=== PATIENT | female | born 1980 | race Caucasian/White ===

== ENCOUNTER → 2016-10-05 | Outpatient (CLI) | payer BC ==
[2016-10-05 10:24] LABS: CH 30.5; CHCM 33.7; HCT 44.3 % (34.0-46.0); HDW 2.86; HGB 14.3 gm/dL (11.4-16.0); MCH 29.3 pg (25.0-35.0); MCHC 32.2 g/dL (31.0-37.0); MCV 91.1 fL (80.0-100.0); Mean Platelet Volume 6.6; RBC 4.87 m/uL (3.80-5.40); RDW 13.9 % (11.5-15.5); WBC 6.2 k/uL (3.8-10.6)
== END | disposition home or self-care (01) ==
LOC: LABWHC1 08:46
PROVIDERS: ATTEND Obstetrics & Gynecology
DX: Z34.92 Encounter for supervision of normal pregnancy, unspecified, second trimester (principal); Z3A.00 Weeks of gestation of pregnancy not specified
CPT/HCPCS: 36415; 82950; 85027

== ENCOUNTER → 2016-10-15 | Outpatient (CLI) | payer BC ==
[2016-10-15 13:16] LABS: Glucose 3 Hour, Gest 49 mg/dL
== END | disposition home or self-care (01) ==
LOC: LABWHC1 08:12
PROVIDERS: ATTEND Obstetrics & Gynecology
DX: O99.810 Abnormal glucose complicating pregnancy (principal); Z3A.00 Weeks of gestation of pregnancy not specified
CPT/HCPCS: 36415; 82951; 82952

== ENCOUNTER → 2016-10-25 | Outpatient (CLI) | payer BC ==
--- NOTE | 2016-10-25 14:36 | US ---
EXAMINATION TYPE: US OB anatomy transabd DATE OF EXAM: 10/25/2016 12:49 PM COMPARISON: In pacs June 18, 2016 HISTORY: Large for dates TECHNIQUE: Transabdominal (TA) EXAM MEASUREMENTS: GESTATIONAL AGE / DATING Physician Established: (28 weeks/5 days) EDC: 01/12/2017 Dates by LMP: (28 weeks/5 days) EDC: 01/12/2017 Dates by First Scan: (28 weeks/5 days) EDC: 01/12/2017 Dates by Current Scan for: (29 weeks/0 days) EDC: 01/10/2017 SURVEY IUP: Single PLACENTA: Posterior PREVIA: No previa SAUD: 13.8 cm Normal CERVICAL LENGTH (transabdominal: norm > 3.0cm): 3.4 cm BIOMETRY PRESENTATION: Vertex BPD: 7.6 cm 30 weeks / 4 days HC: 27.0 cm 29 weeks / 3 days AC: 24.4 cm 28 weeks / 5 days FL: 5.5 cm 29 weeks / 0 days ESTIMATED WEIGHT IN GRAMS: 1322 grams ESTIMATED WEIGHT IN LBS/OZS: 2 lbs. 15 oz. WEIGHT PERCENTAGE BASED ON ESTABLISHED DATE: 48 % HC/AC: 1.11 Normal FL/AC: 22.55 Normal HEART RATE: 148 bpm RHYTHM: Normal ANATOMY SEEN (within normal limits): Midline Falx Cavus Septi Pellucidi Four Chamber Heart Outflow tracts: LVOT/RVOT Stomach Nose / Lips Diaphragm Kidneys (bilateral) Bladder Cord Insert Three Vessel Cord Longitudinal Spine ANATOMY NOT SEEN: Due to maternal body habitus, advanced age, 3rd trimester * Lateral Vent (< 1 cm) cm * Cisterna Magna (< 1.1 cm) cm * Nuchal Fold (< 0.6 cm) cm * Cerebellum (varies with age) cm Choroid Plexus (bilateral) Situs Transverse Spine Arms (bilateral) Legs (bilateral) MATERNAL WALL MEASUREMENT: 4.1 cm from skin to anterior uterine wall (if exam limited due to body shetty bitus). TECHNOLOGIST IMPRESSION: Viable single IUP measuring 29 weeks 0 days with a heart rate of 148bpm and an estimated delivery date of 01/10/2017. Single live intrauterine gestation is redemonstrated. Normal cephalad presentation to fetus is curren tly identified. Amniotic fluid index is within normal limits. There is no ultrasound evidence for valentino centa previa. biometry measurements are congruent and felt within normal limits. Detailed anato mical survey shows multiple structures suboptimally evaluated due to advanced age as well as ma ternal body habitus as detailed above. Other structures are felt within normal limits during real-kamar e scanning and still images saved as detailed above. IMPRESSION: As above.
== END | disposition home or self-care (01) ==
LOC: RADUSWWP 12:05
PROVIDERS: ATTEND Obstetrics & Gynecology
DX: O36.63X0 Maternal care for excessive fetal growth, third trimester, not applicable or unspecified (principal); Z3A.28 28 weeks gestation of pregnancy
CPT/HCPCS: 76811

== ENCOUNTER → 2016-11-19 | Outpatient (CLI) | payer BC ==
--- NOTE | 2016-11-19 10:48 | US ---
EXAMINATION TYPE: US OB >= 14 wk fetus DATE OF EXAM: 11/19/2016 10:05 AM COMPARISON: None CLINICAL HISTORY: Large for Dates O36.63X0 TECHNIQUE: Transabdominal (TA) GESTATIONAL AGE / DATING Physician Established: (32 weeks/2 days) EDC: 01/12/17 Dates by LMP: (32 weeks/2 days) EDC: 01/12/17 Dates by First Scan: (32 weeks/2 days) EDC: 01/12/17 Dates by Current Scan: (32 weeks/5 days) EDC: 01/09/17 SURVEY IUP: Single PLACENTA: Posterior PREVIA: No Previa SAUD: 11.4 cm CERVICAL LENGTH (transabdominal: norm > 3.0cm): 3.0 cm BIOMETRY PRESENTATION: Vertex LIE: Transverse with head maternal Left BPD: 8.2 cm 33 weeks / 0 days HC: 29.8 cm 33 weeks / 0 days AC: 28.7 cm 32 weeks / 5 days FL: 6.2 cm 32weeks / 2 days ESTIMATED WEIGHT IN GRAMS: 2013 grams ESTIMATED WEIGHT IN LBS/OZS: 4 lbs. 7 oz. WEIGHT PERCENTAGE BASED ON ESTABLISHED DATES: 50 % HC/AC: 1.0 FL/AC: 21.7 HEART RATE: 141 bpm RHYTHM: Normal Anatomy seen: Kidneys Bladder Stomach Spine Other anatomy not seen due to calcification of bones, position, patient large body habitus. MATERNAL WALL MEASUREMENT: 4.8 cm from skin to anterior uterine wall (if exam limited due to body hab itus). IMPRESSION: SINGLE FETUS PRESENT IN A VERTEX LIE WITH A GESTATIONAL AGE OF 32 WEEKS 5 DAYS +/- 3 WEEKS. ESTIMATED DATE OF CONFINEMENT BASED ON THIS EXAMINATION IS 01/09/2017.
--- NOTE | 2016-11-19 10:50 | US ---
EXAMINATION TYPE: US abdomen limited DATE OF EXAM: 11/19/2016 9:56 AM COMPARISON: Previous study dated 10/25/2016. CLINICAL HISTORY: RUQ Abd Pain R10.11. EXAM MEASUREMENTS: Liver Length: 15.4 cm Gallbladder Wall: 0.2 cm CBD: 0.3 cm Right Kidney: 11.0 x 4.2 x 5.5cm cm patient with abdomen pain. Large body habitus. Pancreas: Obscured by bowel gas Liver: wnl Gallbladder: wnl Evidence for sonographic Madrigal's sign: no CBD: wnl Right Kidney: wnl The pancreas is not visualized. The liver is normal in size without biliary dilatation. The gallbladder is normal. The gallbladder wall measures 2 mm. The distal common hepatic duct measure s 3 mm. The right kidney is unremarkable. IMPRESSION: NORMAL RIGHT UPPER QUADRANT ULTRASOUND.
== END ==
LOC: RADUSWWP 08:57
PROVIDERS: ATTEND Obstetrics & Gynecology
DX: O26.893 Other specified pregnancy related conditions, third trimester (principal); R10.11 Right upper quadrant pain; Z3A.32 32 weeks gestation of pregnancy; O36.63X0 Maternal care for excessive fetal growth, third trimester, not applicable or unspecified
CPT/HCPCS: 76705; 76805

== ENCOUNTER → 2016-12-10 | Outpatient (CLI) | payer BC ==
--- NOTE | 2016-12-10 12:18 | US ---
EXAMINATION TYPE: US OB >= 14 wk fetus third trimester DATE OF EXAM: 12/10/2016 11:50 AM COMPARISON: US November 19, 2016. HISTORY: Large for Dates O36.63XO TECHNIQUE: Transabdominal (TA) EXAM MEASUREMENTS: GESTATIONAL AGE / DATING Physician Established: (35 weeks/5 days) EDC: 01/12/2017 Dates by LMP: (35 weeks/5 days) EDC: 01/12/2017 Dates by First Scan: not available Dates by Current Scan for: (35 weeks/5 days) EDC: 01/09/17 SURVEY IUP: Single PLACENTA: Posterior PREVIA: No previa SAUD: 9.4 cm CERVICAL LENGTH (transabdominal: norm > 3.0cm): 3.0 cm BIOMETRY PRESENTATION: Vertex LIE: Longitudinal BPD: 9.4 cm 38 weeks / 3 days HC: 32.7 cm 37 weeks / 1 days AC: 30.9 cm 34 weeks / 6 days FL: 6.8 cm 34 weeks / 6 days ESTIMATED WEIGHT IN GRAMS: 2766 grams ESTIMATED WEIGHT IN LBS/OZS: 5 lbs. 14 oz. WEIGHT PERCENTAGE BASED ON ESTABLISHED DATE: 52 % HC/AC: 1.1 FL/AC: 21.9 HEART RATE: 162 bpm RHYTHM: Normal ANATOMY SEEN (within normal limits): Kidneys (bilateral) Bladder Falx ANATOMY NOT SEEN: Due to body habitus/position/calcification of bone * Lateral Vent (< 1 cm) cm * Cisterna Magna (< 1.1 cm) cm * Nuchal Fold (< 0.6 cm) cm * Cerebellum (varies with age) cm Choroid Plexus (bilateral) Midline Falx Cavus Septi Pellucidi Four Chamber Heart Outflow tracts: LVOT/RVOT Stomach Situs Nose / Lips Diaphragm Cord Insert Three Vessel Cord Longitudinal Spine Transverse Spine Arms (bilateral) Legs (bilateral) MATERNAL WALL MEASUREMENT: 4.0 cm from skin to anterior uterine wall (if exam limited due to body shetty bitus). Technically difficult study due to body habitus. Office called with low SAUD immediately following exa m, spoke with Mandi. Single live intrauterine gestation is redemonstrated. Normal cephalad presentation to fetus is again seen. There is no ultrasound evidence for placenta previa. Amniotic fluid index is lower limits of no rmal slightly diminished from prior. biometry measurements are congruent and felt within normal limits. Limited anatomical survey is noted as detailed above due to advanced age and maternal body habitus. IMPRESSION: As above.
== END | disposition home or self-care (01) ==
LOC: RADUSWWP 09:43
PROVIDERS: ATTEND Obstetrics & Gynecology
DX: O36.63X0 Maternal care for excessive fetal growth, third trimester, not applicable or unspecified (principal); Z3A.35 35 weeks gestation of pregnancy
CPT/HCPCS: 76805

== ENCOUNTER 2017-01-01 19:32 | Inpatient (IN) | payer BC ==
[2017-01-01 20:35] LABS: Appearance,Urine Cloudy (Clear); Bilirubin,Urine Negative (Negative); Calcium Oxalate Crystals,Urine Occasional /hpf; Glucose,Urine (UA) Negative (Negative); Ketones,Urine Negative (Negative); Leukocyte Esterase,Urine Negative (Negative); Mucus,Urine Rare /hpf; Nitrite,Urine Negative (Negative); Particle Count 2504; Protein,Urine Trace (Negative); RBC,Urine 2 /hpf (0-5); Specific Gravity,Urine 1.026 (1.001-1.035); Squamous Epithelial Cell,Urine 3 /hpf (0-4); UA Billing (MACRO vs. MICRO) MICRO; WBC,Urine 2 /hpf (0-5)
[2017-01-01 21:00] LABS: Basophils % (A) 0 %; CH 30.2; CHCM 33.8; Eosinophils # (A) 0.1 k/uL (0-0.7); Eosinophils % (A) 1 %; HCT 43.4 % (34.0-46.0); HDW 2.59; HGB 14.2 gm/dL (11.4-16.0); Luc # (Auto) 0.08; Luc % (Auto) 1; Lymphocytes % (A) 15 %; MCH 29.4 pg (25.0-35.0); MCHC 32.7 g/dL (31.0-37.0); MCV 89.9 fL (80.0-100.0); Mean Platelet Volume 7.4; Monocytes # (A) 0.3 k/uL (0-1.0); Monocytes % (A) 4 %; Neutrophils # (A) 5.3 k/uL (1.3-7.7); Neutrophils % (A) 78 %; RBC 4.83 m/uL (3.80-5.40); RDW 13.7 % (11.5-15.5); WBC 6.8 k/uL (3.8-10.6); WBC (Perox) 7.15
[2017-01-01 21:02] LABS: INR 0.9 (<1.1); Prothrombin Time 9.6 sec (9.0-12.0)
[2017-01-01 21:05] LABS: ALT 27 U/L (9-52); AST 19 U/L (14-36); Blood Urea Nitrogen 17 mg/dL (7-17); LDH 362 U/L (313-618); Non-African American GFR(MDRD) >60 (>60 ml/min/1.73 sqM); Uric Acid 5.4 mg/dL (3.7-7.4)
[2017-01-01 22:26] VITALS: BMI 44.9
--- NOTE | 2017-01-01 22:49 | P.HPOB ---
History of Present Illness H&P Date: 01/01/17 Chief Complaint: Gestational hypertension This is a 36-year-old female 5 para 3 with an estimated date of confinement of 01/12/2017, estimated gestational age of 38-3/7 weeks, who presented to triage initially for complaints of questionable rupture of membranes. Amnisure was negative. However her blood pressures were initially significantly elevated in the 160s over 80s and did slowly come down to 120 to 1 :30 over 70s. She still has some isolated blood pressures are in the 140s over 80s. She has occasional headaches that Tylenol usually takes care of. She denies any blurry vision or epigastric pain. She she does have some swelling in her lower extremities. She has no history of elevated blood pressures during this . She does however have a history of induced hypertension and preeclampsia during her first which did end with a stillborn at 33 weeks. Her next 2 pregnancies were uncomplicated. She is scheduled for a repeat section with tubal ligation next Saturday. Her lab work was all negative other than trace protein. With the new onset of elevated blood pressures, the decision is made to admit for close observation overnight and to perform section in the morning due to gestational hypertension. labs: GC/chlamydia-negative Toxoplasma-nonreactive Syphilis antibody-negative nonreactive HIV-nonreactive Random glucose-118 Hepatitis B surface antigen-negative Hemoglobin-14.8 Rubella-immune Blood type-O+ Antibody screen-negative Obstetrical ultrasound-normal anatomy One hour Glucola-139 Three-hour Glucola-within normal limits Obstetrical history: . Her first was Located by demise at 33 weeks that did require section. She did have 2 further deliveries at full term with no complications. She also had a history of 1 miscarriage that required dilation and curettage. Review of Systems Constitutional: Denies chills, Denies fever Eyes: denies blurred vision Ears, nose, mouth and throat: Denies headache, Denies sore throat Cardiovascular: Denies chest pain, Denies shortness of breath Respiratory: Denies cough Gastrointestinal: Denies abdominal pain, Denies diarrhea, Denies nausea, Denies vomiting Genitourinary: Reports , Denies pelvic pain Neurological: Denies headaches Psychiatric: Denies anxiety, Denies depression Past Medical History Past Medical History: Fibromyalgia Additional Past Medical History / Comment(s): migraines, had hypertension with one , hx kidney stones, sjogrens syndrome. Patient has a history of interstitial cystitis past obstetrical history is significant for a demise at about33 weeks with her first and then a term for her second . History of Any Multi-Drug Resistant Organisms: None Reported Past Surgical History: Section Additional Past Surgical History / Comment(s): Patient has had a D&C. Past Anesthesia/Blood Transfusion Reactions: Motion Sickness, Postoperative Nausea & Vomiting (PONV) Past Psychological History: No Psychological Hx Reported Smoking Status: Never smoker Past Alcohol Use History: None Reported Past Drug Use History: None Reported - Past Family History Father Family Medical History: Cancer Mother Family Medical History: Blood Disorder Additional Family Medical History / Comment(s): MTHR Medications and Allergies Home Medications Medication Instructions Recorded Confirmed Type Vitamin 1 tab PO DAILY 02/26/14 01/01/17 History L.acidoph,Paracasei, B.lactis 1 each PO DAILY 04/07/15 01/01/17 History [Probiotic] Allergies Allergy/AdvReac Type Severity Reaction Status Date / Time hydromorphone HCl Allergy Severe Anaphylaxis Verified 01/01/17 19:40 [From Dilaudid] Exam Osteopathic Statement: *. No significant issues noted on an osteopathic structural exam other than those noted in the History and Physical/Consult. - Vital Signs Vital signs: Vital Signs Temp Pulse Resp BP 01/01/17 22:12 98.2 F 86 18 142/80 Intake and Output 01/01/17 01/01/17 01/01/17 06:59 14:59 22:59 Other: Weight 122.47 kg Patient Weight 01/02/17 06:59 Weight 122.47 kg Gen.: Well-developed well-nourished female in no acute distress HEENT: Within normal limits Heart: Regular rate and rhythm Lungs: Clear to auscultation bilaterally Abdomen: heart tones: Reactive with good variability Contractions: Rare Amnisure: Negative Extremities: Trace edema Results Result Diagrams: 01/01/17 20:43 01/01/17 20:43 Abnormal Lab Results - Last 24 Hours (Table) 01/01/17 Range/Units 20:00 Urine Appearance Cloudy H (Clear) Urine Protein Trace H (Negative) Calcium Oxalate Crystal Occasional H (None) /hpf Urine Mucus Rare H (None) /hpf Assessment and Plan (1) 38 weeks gestation of Status: Acute (2) Gestational hypertension Status: Acute (3) Family planning Status: Acute (4) Previous section Status: Acute Plan: Plan is to admit overnight for observation of blood pressures and heart tones. We'll plan repeat section with bilateral partial salpingectomy first thing in the morning. If any significant changes in blood pressure status, will proceed with section earlier. Patient and are in agreement with plan.
[2017-01-02] MEDS ORDERED: LACTATED RINGERS 1,000 ML IV ONE (01:11)
[2017-01-02] MEDS ORDERED: LACTATED RINGERS 1,000 ML IV SCH (01:11)
[2017-01-02] MEDS ORDERED: CITRIC ACID-SODIUM CITRATE 15 ML CUP PO ONE (01:11)
[2017-01-02] MEDS ORDERED: LIDOCAINE 1% 20 ML VIAL (10MG/ML) FOR IV START INTRADERMA PRN (01:11)
[2017-01-02] MEDS ORDERED: ceFAZolin 3 GM in SODIUM CHLORIDE 0.9% 100 ML IVPB ONE (01:11)
[2017-01-02] MEDS ORDERED: ONDANSETRON 4 MG/2 ML VIAL ONE (06:47)
[2017-01-02] MEDS ORDERED: KETOROLAC 30 MG/ML 1 ML VIAL ONE (06:47)
[2017-01-02] MEDS ORDERED: NALBUPHINE 10 MG/ML AMPUL ONE (06:47)
[2017-01-02] MEDS ORDERED: MORPHINE SULFATE (PF) 0.3 MG/0.3 ML SYR ONE (06:47)
[2017-01-02] MEDS ORDERED: diphenhydrAMINE 50 MG/ML 1 ML VIAL IVP PRN ×2 (07:28→08:39)
[2017-01-02] MEDS ORDERED: ONDANSETRON 4 MG/2 ML VIAL IVP PRN ×2 (07:28→08:39)
[2017-01-02] MEDS ORDERED: NALBUPHINE 10 MG/ML AMPUL IV PRN (07:28)
[2017-01-02] MEDS ORDERED: MORPHINE SULFATE 4 MG/ML SYRINGE IVP PRN ×2 (07:28→07:41)
[2017-01-02] MEDS ORDERED: NALOXONE 0.4 MG/ML 1 ML VIAL IV PRN ×2 (07:28→08:39)
--- NOTE | 2017-01-02 07:42 | P.OP ---
Date of Procedure: 01/02/17 Preoperative Diagnosis: #1: 38-4/7 weeks gestation. #2: Gestational hypertension. #3: Previous section 3. #4: Multi parity desires permanent sterilization. Postoperative Diagnosis: Same Procedure(s) Performed: #1: Repeat low transverse section. #2: Bilateral partial salpingectomy Implants: Anesthesia: spinal Surgeon: Markus Dykes Paster Supervisor #1: Mackenzie Shearer Estimated Blood Loss (ml): 600 Pathology: other (Placenta and bilateral fallopian tube segments.) Condition: stable Disposition: floor Indications for Procedure: Please see dictated H&P for intimate details of this patient's admission. Brief summary is a pleasant 36-year-old 5 para 3 female 38-4/7 weeks gestation admitted last evening with concerns for rupture membranes. Patient was found to be intact however it did have elevated blood pressures highest being 160s over 90s. Patient is a previous section 3 and requested repeat post tubal ligation. Due to the hypertension we'll plan to proceed with delivery at this time. Patient does understand the surgery and risks including risks of infection, bleeding, possible injury bowel, bladder, vessels, and other organs. Patient understands risk DVT and pulmonary embolism. All the patient's questions are answered written consent is obtained. Operative Findings: This is a viable male Apgars 9 and 10 at 0704 hours grossly appears normal. Description of Procedure: Please see dictated H&P for intimate details of this patient's admission. Brief summary this is a pleasant 36-year-old 5 para 3 female 38-4/7 weeks gestation admitted last evening by Dr. Shearer with hypertension. Patient's blood pressure did come down but due to the significant elevation at term recommendations proceed with delivery at this time. Patient's had 3 previous sections the first one being a stillborn. Patient is requesting repeat and tubal ligation at this time. Patient understands tubal ligation is permanent. She understands the surgery itself has risks including risks of infection, bleeding, possible injury bowel, bladder, vessels, and other organs. All the patient's questions are answered written consent is obtained. This patient has a Ball catheter placed to straight drain. She subsequently taken to the operating room where she sat up and spinal anesthetic is administered without incident. With an adequate level of anesthesia she has abdominal prep and drape. Scalpels and taken the previous Pfannenstiel incision is incised. A second scalpel is taken down the fascia and the fascia scored with a knife. Fascial incision extended bilaterally using the Osborn scissors. Fascia is then dissected off the rectus muscles sharply. Rectus muscles are the peritoneum identified and entered sharply. Peritoneal incision extended superior and inferior without difficulty. Bladder blade is then placed. Bladder is taken off the lower uterine segment sharply. Scalpels and taken a low transverse uterine incision is then made. Using a hemostat I into the uterine cavity bluntly and there is loss of clear fluid. Infant's head is then guided through the incision with fundal pressure delivered through the incision. There is no evidence of nuchal cord. Mouth and nares are bulb suctioned. Then delivery anterior posterior shoulder and rest this infant's body. This is a vigorous viable male infant Apgars are 9 and 10 delivery time is 0704 hrs. After delivery of the infant the umbilical cords doubly clamped and cut appears to be trivascular. Placenta is then manually extracted intact. Uterus is then externalized and uterine incision demarcated with Alba clamps. Uterine incision closed using 0 Vicryl running locked fashion 2 layers excellent hemostasis is noted. With this done I then turned my attention left fallopian tube approximately 4 cm from its cornual insertion a small window is made to the mesial salpinx with Bovie cautery. Using a 2-0 silk I doubly ligate a knuckle the tube. Approximately 2 cm segment of tube was excised and handed off to pathology. Cauterization done of the tubal ends. Excellent hemostasis is noted. Similar technique on the right side similar results a portion of the right fallopian tube is handed off to pathology. This done excess fluid is removed from the abdomen and pelvis. Uterus placed back into the abdomen. Inspection of the tubal ends are done again good found to be hemostatic. Parietal peritoneum was then identified and closed in 0 Vicryl. The rectus muscles reapproximated in 0 Vicryl ruptured fashion. Fascia is then closed using 0 PDS in a running fashion. Fascial incision is intact and hemostatic. Subcutaneous tissues and closed using a 3-0 Vicryl. Skin is and closed using carlita. All counts are correct 3. No complications. Infant and mother are taken to the birthing suite in satisfactory condition.
[2017-01-02] MEDS ORDERED: ZOLPIDEM 5 MG TAB PO PRN (08:39)
[2017-01-02] MEDS ORDERED: diphenhydrAMINE 25 MG CAP PO PRN (08:39)
[2017-01-02] MEDS ORDERED: SIMETHICONE 80 MG CHEWABLE PO PRN (08:39)
[2017-01-02] MEDS ORDERED: METOCLOPRAMIDE 5 MG/ML 2 ML VIAL IVP PRN (08:39)
[2017-01-02] MEDS ORDERED: ACETAMINOPHEN TAB 325 MG TAB PO PRN (08:39)
[2017-01-02] MEDS: SENNOSIDES-DOCUSATE SODIUM 1 EACH TAB PO SCH ×2 (10:00→20:19)
[2017-01-02] MEDS: KETOROLAC 30 MG/ML 1 ML VIAL IVP PRN ×2 (13:12→20:18)
[2017-01-02] MEDS: LACTATED RINGERS 1,000 ML IV SCH ×2 (13:13→18:32)
[2017-01-03] MEDS: LACTATED RINGERS 1,000 ML IV SCH (02:26)
[2017-01-03] MEDS: KETOROLAC 30 MG/ML 1 ML VIAL IVP PRN (03:44)
--- NOTE | 2017-01-03 06:01 | P.PNOBGPC ---
Subjective - Subjective Patient reports: Reports appetite normal, Reports voiding normally, Reports pain well controlled, Reports ambulating normally : doing well Objective - Vital Signs Latest vital signs: Vital Signs Temp Pulse Resp BP Pulse Ox 01/03/17 04:00 98.2 F 88 18 117/68 97 01/03/17 02:00 16 01/03/17 00:00 98.6 F 83 17 117/75 96 01/02/17 22:00 16 01/02/17 20:00 97.7 F 87 18 129/81 98 01/02/17 18:00 16 01/02/17 15:43 98 F 94 16 125/77 95 01/02/17 14:00 16 95 01/02/17 11:56 95 01/02/17 11:55 98.4 F 68 16 114/73 95 01/02/17 10:28 16 95 01/02/17 09:32 97.3 F L 82 16 110/69 96 01/02/17 09:02 65 16 115/58 01/02/17 08:32 69 16 112/68 94 L 01/02/17 08:28 16 94 L 01/02/17 08:17 65 16 114/66 96 01/02/17 08:02 74 16 112/71 96 01/02/17 07:52 16 95 01/02/17 07:47 76 16 111/55 94 L 01/02/17 07:32 97.3 F L 79 16 115/60 96 01/02/17 07:28 16 95 Intake and Output 01/02/17 01/02/17 01/03/17 14:59 22:59 06:59 Intake Total 1100 Output Total 600 900 600 Balance 500 -900 -600 Intake: IV 100 ceFAZolin 3 gm In Sodium 100 Chloride 0.9% 100 ml @ 100 mls/hr IVPB ONCE ONE Rx#:[id number] Intake, IV Titration 1000 Amount Lactated Ringers 1,000 ml 1000 @ 4000 mls/hr IV .Q15M ONE Rx#:[id number] Output: Urine 900 600 Uretheral (Ball) 375 Estimated Blood Loss 600 Other: Voiding Method Indwelling Catheter # Voids 0 0 - Exam Lungs: bilateral: normal Chest: Normal S1, Normal S2 Extremities: Present: normal Abdomen: Present: normal appearance, soft. Absent: distention, tenderness Incision: Present: normal, dry, intact Uterus: Present: normal, firm Assessment and Plan (1) delivery delivered Narrative/Plan: Postoperative day #1. Patient is resting without complaints. Vital signs are stable she is afebrile. Uterus is firm nontender she's having normal lochia. Her incision is intact and dry. My impression this is a normal postoperative course. Plan is to encourage ambulation, allow the patient to shower, continue regular diet, and check a CBC today. Current Visit: Yes Status: Acute Code(s): O82 - ENCOUNTER FOR DELIVERY WITHOUT INDICATION SNOMED Code(s): 204986476
[2017-01-03] MEDS: Acetaminophen-Codeine 300-30mg TAB PO PRN ×2 (07:46→17:07)
[2017-01-03] MEDS: SENNOSIDES-DOCUSATE SODIUM 1 EACH TAB PO SCH ×2 (07:47→19:37)
[2017-01-03 08:22] LABS: Basophils % (A) 0 %; CH 30.2; CHCM 33.8; Eosinophils # (A) 0.1 k/uL (0-0.7); Eosinophils % (A) 2 %; HCT 40.6 % (34.0-46.0); HDW 2.61; HGB 13.8 gm/dL (11.4-16.0); Luc # (Auto) 0.05; Luc % (Auto) 1; Lymphocytes # (A) 0.8 k/uL (1.0-4.8); Lymphocytes % (A) 13 %; MCH 30.6 pg (25.0-35.0); MCV 89.8 fL (80.0-100.0); Mean Platelet Volume 6.9; Monocytes # (A) 0.2 k/uL (0-1.0); Monocytes % (A) 3 %; Neutrophils # (A) 5.1 k/uL (1.3-7.7); Neutrophils % (A) 82 %; RBC 4.53 m/uL (3.80-5.40); RDW 13.8 % (11.5-15.5); WBC 6.2 k/uL (3.8-10.6); WBC (Perox) 5.94
--- NOTE | 2017-01-03 11:48 | P.PN ---
Progress Note - Text Postoperative day 1 status post section under spinal anesthesia, and intrathecal morphine given for postoperative analgesia, patient doing well, there is no anesthesia related complications, further management as per her primary team
[2017-01-03] MEDS: IBUPROFEN 600 MG TAB PO PRN ×2 (12:30→19:37)
[2017-01-04] MEDS: Acetaminophen-Codeine 300-30mg TAB PO PRN ×3 (01:10→20:21)
--- NOTE | 2017-01-04 05:34 | P.PNOBGPC ---
Subjective - Subjective Patient reports: Reports appetite normal, Reports voiding normally, Reports pain well controlled, Reports ambulating normally : doing well Objective - Vital Signs Latest vital signs: Vital Signs Temp Pulse Resp BP Pulse Ox 01/04/17 00:00 97.8 F 86 18 123/74 96 01/03/17 16:00 98.1 F 68 17 104/58 98 01/03/17 08:00 98.2 F 79 16 115/77 99 Intake and Output 01/03/17 01/03/17 01/04/17 14:59 22:59 06:59 Other: # Voids 1 3 - Exam Lungs: bilateral: normal Chest: Normal S1, Normal S2 Extremities: Present: normal Abdomen: Present: normal appearance, soft. Absent: distention, tenderness Incision: Present: normal, dry, intact Uterus: Present: normal, firm - Labs Labs: Abnormal Lab Results - Last 24 Hours (Table) 01/03/17 Range/Units 08:10 Plt Count 149 L (150-450) k/uL Lymphocytes # 0.8 L (1.0-4.8) k/uL Assessment and Plan (1) delivery delivered Narrative/Plan: Postoperative day #2. Patient is resting without complaints. Vital signs are stable and she is afebrile. Uterus is firm nontender and she isn't normal lochia. Incision is intact and dry. Patient may want to go home today pending on the baby's bilirubin. Lantus to continue routine care possible discharge home today or tomorrow. Current Visit: Yes Status: Acute Code(s): O82 - ENCOUNTER FOR DELIVERY WITHOUT INDICATION SNOMED Code(s): 661167734
[2017-01-04] MEDS: IBUPROFEN 600 MG TAB PO PRN ×2 (06:09→16:02)
[2017-01-04] MEDS: SENNOSIDES-DOCUSATE SODIUM 1 EACH TAB PO SCH ×2 (09:12→20:23)
[2017-01-05] MEDS: IBUPROFEN 600 MG TAB PO PRN ×2 (00:21→08:32)
[2017-01-05 01:06] VITALS: PULSE 77
[2017-01-05] MEDS: Acetaminophen-Codeine 300-30mg TAB PO PRN (06:43)
--- NOTE | 2017-01-05 07:19 | P.PNOBGPC ---
Subjective - Subjective Patient reports: Reports appetite normal, Reports voiding normally, Reports pain well controlled, Reports ambulating normally : doing well Objective - Vital Signs Latest vital signs: Vital Signs Temp Pulse Resp BP Pulse Ox 01/05/17 00:00 98.7 F 77 16 100/64 01/04/17 16:00 98.1 F 79 16 140/70 99 01/04/17 08:00 98.5 F 84 16 115/68 96 Intake and Output 01/04/17 01/05/17 01/05/17 22:59 06:59 14:59 Other: # Voids 2 1 # Bowel Movements 1 - Exam Lungs: bilateral: normal Chest: Normal S1, Normal S2 Extremities: Present: normal Abdomen: Present: normal appearance, soft. Absent: distention, tenderness Incision: Present: normal, dry, intact Uterus: Present: normal, firm Assessment and Plan (1) delivery delivered Narrative/Plan: Postoperative day #3. Patient is resting without complaints. Vital signs are stable and she is afebrile. Uterus is firm nontender her incision is intact and dry. My impression this is a normal post course. Plan is to continue routine care most likely discharge home today. Current Visit: Yes Status: Acute Code(s): O82 - ENCOUNTER FOR DELIVERY WITHOUT INDICATION SNOMED Code(s): 287428586
--- NOTE | 2017-01-05 07:20 | P.DS ---
Providers Date of admission: 01/01/17 22:02 Expected date of discharge: 01/05/17 Attending physician: Markus Dykes Primary care physician: Stated None - Discharge Diagnosis(es) (1) delivery delivered Current Visit: Yes Status: Acute Hospital Course: Please see dictated H&P intimate details of this patient's admission. Brief summary this is a pleasant 36-year-old 5 para 3 female 38 weeks gestation admitted to labor and delivery and found to have gestational hypertension. Patient underwent a repeat and bilateral partial salpingectomy. Please see dictated operative note. By postoperative #3 patient 's felt be stable for discharge home follow up with me in 1 week. Procedures: Repeat low transverse section and bilateral partial salpingectomy. Patient Condition at Discharge: Good Plan - Discharge Summary New Discharge Prescriptions: Acetaminophen-Codeine 300-30mg [Tylenol w/codeine #3] 1 - 2 each PO Q4HR PRN # 40 tab PRN Reason: Mild Pain Ibuprofen [Motrin] 600 mg PO Q6HR PRN #40 tab PRN Reason: Mild Pain Or Fever >= 100.5 Discharge Medication List Vitamin 1 tab PO DAILY 02/26/14 [History] L.acidoph,Paracasei, B.lactis [Probiotic] 1 each PO DAILY 04/07/15 [History] Acetaminophen-Codeine 300-30mg [Tylenol w/codeine #3] 1 - 2 each PO Q4HR PRN # 40 tab 01/04/17 [Rx] Ibuprofen [Motrin] 600 mg PO Q6HR PRN #40 tab 01/04/17 [Rx] Follow up Appointment(s)/Referral(s): Markus Dykes MD [STAFF PHYSICIAN] - 01/11/17 1:30 pm (Patient has a visit on February 12 at 2:30 PM.) Patient Instructions/Handouts: (DC) Activity/Diet/Wound Care/Special Instructions: No strenuous activity or heavy lifting. No intercourse reining per vagina for 6 weeks. Please call if any fever, chills, excessive vaginal bleeding, and/or abdominal pain. Discharge Disposition: HOME SELF-CARE
[2017-01-05] MEDS: SENNOSIDES-DOCUSATE SODIUM 1 EACH TAB PO SCH (08:33)
[2017-01-05 09:10] VITALS: BP 131/87; RESP 18; TEMP 98.3
== END 2017-01-05 11:10 | disposition home or self-care (01) | DRG 766 ==
LOC: FBPOP 19:32 → 4FBP 22:02
PROVIDERS: ADMIT Obstetrics & Gynecology; ATTEND Obstetrics & Gynecology
PROC: 0UB70ZZ Excision of Bilateral Fallopian Tubes, Open Approach (ICD-10-PCS; 2017-01-02)
PROC: 10D00Z1 Extraction of Products of Conception, Low, Open Approach (ICD-10-PCS; principal; 2017-01-02 07:00)
DX: O13.4 Gestational [pregnancy-induced] hypertension without significant proteinuria, complicating childbirth (principal); M35.00 Sjogren syndrome, unspecified; O99.89 Other specified diseases and conditions complicating pregnancy, childbirth and the puerperium; O34.211 Maternal care for low transverse scar from previous cesarean delivery; M79.7 Fibromyalgia; G43.909 Migraine, unspecified, not intractable, without status migrainosus; Z37.0 Single live birth; Z3A.38 38 weeks gestation of pregnancy; Z88.5 Allergy status to narcotic agent
CPT/HCPCS: 81001; 82565; 83615; 84450; 84460; 84520; 84550; 85025; 85610; 85730; 86850; 86900; 86901; 88302; 88307; 99213

== ENCOUNTER → 2019-03-04 | Outpatient (CLI) | payer BC ==
--- NOTE | 2019-03-04 09:07 | MM ---
Reason for exam: screening (asymptomatic). Baseline mammogram. History: Family history of breast cancer in maternal grandmother at age 62 and breast cancer in maternal cousin at age 32. Took hormonal contraceptives for 1 year beginning at age 23. Physical Findings: Nurse did not find any significant physical abnormalities on exam. MG 3D Screening Mammo W/Cad Bilateral CC and MLO view(s) were taken. The breast tissue is almost entirely fat. Finding: There is a typically benign circumscribed oval mass in the upper outer quadrant, posterior position of the right breast. There is no discrete abnormality. These results were verbally communicated with the patient and result sheet given to the patient on 03/04/19. ASSESSMENT: Negative, BI-RAD 1 RECOMMENDATION: Routine screening mammogram of both breasts in 1 year. (1-2 years)
== END | disposition home or self-care (01) ==
LOC: RADMAMWWP 08:03
PROVIDERS: ATTEND Obstetrics & Gynecology
DX: Z12.31 Encounter for screening mammogram for malignant neoplasm of breast (principal)
CPT/HCPCS: 77063; 77067

== ENCOUNTER → 2020-03-31 | Outpatient (CLI) | payer BC ==
--- NOTE | 2020-04-01 09:00 | MM ---
Reason for exam: screening (asymptomatic). Last mammogram was performed 1 year and 1 month ago. History: Family history of breast cancer in maternal grandmother at age 62 and breast cancer in maternal cousin at age 32. Took hormonal contraceptives for 1 year beginning at age 23. Physical Findings: A clinical breast exam by your physician is recommended on an annual basis and results should be correlated with mammographic findings. MG 3D Screening Mammo W/Cad Bilateral CC and MLO view(s) were taken. Prior study comparison: March 04, 2019, bilateral MG 3d screening mammo w/cad. There are scattered fibroglandular densities. There is chronic nodularity in the right breast. No significant changes when compared with prior studies. ASSESSMENT: Negative, BI-RAD 1 RECOMMENDATION: Routine screening mammogram of both breasts at age 42.
== END | disposition home or self-care (01) ==
LOC: RADMAMWWP 07:35
PROVIDERS: ATTEND Obstetrics & Gynecology
DX: Z12.31 Encounter for screening mammogram for malignant neoplasm of breast (principal)
CPT/HCPCS: 77063; 77067

== ENCOUNTER → 2021-05-11 | Outpatient (CLI) | payer OTHER ==
--- NOTE | 2021-05-11 11:28 | MM ---
Reason for exam: clinical finding. Last mammogram was performed 1 year and 1 month ago. History: Family history of breast cancer in maternal grandmother at age 62 and breast cancer in maternal cousin at age 32. Took hormonal contraceptives for 1 year beginning at age 23. Physical Findings: Nurse did not find any significant physical abnormalities on exam. MG 3D Diag Mammo W/Cad LT CC and MLO view(s) were taken of the left breast. Prior study comparison: March 31, 2020, bilateral MG 3d screening mammo w/cad. March 04, 2019, bilateral MG 3d screening mammo w/cad. There are scattered fibroglandular densities. No significant new findings when compared with previous films. These results were verbally communicated with the patient and result sheet given to the patient on 05/11/21. ASSESSMENT: Benign, BI-RAD 2 RECOMMENDATION: Routine screening mammogram of both breasts at age 42. Manage patient on a clinical basis.
== END | disposition home or self-care (01) ==
LOC: RADMAMWWP 08:19
PROVIDERS: ATTEND Obstetrics & Gynecology
DX: R92.8 Other abnormal and inconclusive findings on diagnostic imaging of breast (principal); Z80.3 Family history of malignant neoplasm of breast
CPT/HCPCS: 77061; 77065

== ENCOUNTER → 2021-07-27 | Outpatient (CLI) | payer OTHER ==
[2021-07-27 10:17] VITALS: BP 120/81; PULSE 85; RESP 16; TEMP 97.9
--- NOTE | 2021-07-27 10:50 | P.GSHP ---
History of Present Illness H&P Date: 07/27/21 Chief Complaint: left breast pain Ernestina is a 40 year old white female seen in consultation for DR. yDkes regarding left breast pain. She had a bilateral mammogram performed on which was benign BIRADS 1. She had a repeat left breast mammogram performed on 05-11-21 which was also BIRAD 1. The pain was intermittent the past several months describe from the periphery of the breast radiating towards the nipple.It occurred every several days, she did not note any nipple discharge, or masses or lumps. The pain was described as uncomfortable and was a 3 and only lasted a few seconds. Only occured approximately once a day. She was not concerned about it until she noted that she had a red area on the lateral aspect of her breast. That lasted only one day and it went away. It did turn into a bruise several days later. The pain did not seem to be related to her menstrual cycle. At this time she is not having any pain or skin changes. She has intentionally lost 40 pounds over the last several months. She has not had any trauma, infection, to her breast. She has not had any change in medication. She has 3 sons ranging in age from 13 to 4. She had some trauma which she was unaware of when lifting her 4-year-old son. Lindsey Risk evaluation: 5 year risk: 0.6% lifetime risk: 12.2.% Caffeine: occasional nicotine: none chocolate: occasional Family History: maternal cousin: breast cancer at 33; she is OK now; she is about 10 years out maternal grandmother: breast cancer maternal great aunt: breast cancer Hormonal history: Menarche: 13 stillbirth 1, M1; breast fed: yes; age at first livebirth: 28 periods heavy and regular Surgical history: Tubal ligation 4 C-sections Medical History: ? Sjogren's syndrome ? fibromyalgia Social History: nicotine: none alcohol: none drugs: none - Constitutional Constitutional: Denies chills, Denies fever - EENT Eyes: denies blurred vision, denies pain Ears: deny: decreased hearing, tinnitus Ears, nose, mouth and throat: Denies headache, Denies sore throat - Breasts Breasts: bilateral: as per HPI - Cardiovascular Cardiovascular: Denies chest pain, Denies shortness of breath - Respiratory Respiratory: Denies cough, Denies 7 - Gastrointestinal Comment: IBS Gastrointestinal: Denies abdominal pain, Denies diarrhea, Denies nausea, Denies vomiting - Genitourinary (Female) Genitourinary: Denies dysuria, Denies hematuria - Menstruation Comment: cycle is regular Menstruation: Reports period heavy - Musculoskeletal Comment: ? Sjgren syndrome - Integumentary Comment: dry eyes and dry mouth - Neurological Neurological: Denies numbness, Denies weakness - Psychiatric Psychiatric: Reports anxiety - Endocrine Endocrine: Reports weight change, Denies fatigue - Hematologic/Lymphatic Comment: none - Allergic/Immunologic Allergic/Immunologic: Reports as per HPI Past Medical History Past Medical History: Fibromyalgia Additional Past Medical History / Comment(s): migraines, had hypertension with one , hx kidney stones, sjogrens syndrome. Patient has a history of interstitial cystitis past obstetrical history is significant for a demise at about 33 weeks with her first and then a term for her second . History of Any Multi-Drug Resistant Organisms: None Reported Past Surgical History: Section Additional Past Surgical History / Comment(s): Patient has had a D&C. Past Anesthesia/Blood Transfusion Reactions: Motion Sickness, Postoperative Nausea & Vomiting (PONV) Past Psychological History: No Psychological Hx Reported Smoking Status: Never smoker Past Alcohol Use History: None Reported Past Drug Use History: None Reported - Past Family History Father Family Medical History: Cancer Mother Family Medical History: Blood Disorder Additional Family Medical History / Comment(s): MTHR Medications and Allergies Home Medications Medication Instructions Recorded Confirmed Type L.acidoph,Paracasei, B.lactis 1 each PO DAILY 04/07/15 07/27/21 History [Probiotic] Multivitamins, Thera [Multivitamin 1 tab PO DAILY 07/27/21 07/27/21 History (formulary)] Reed-3 Fatty Acids/Fish Oil [Fish 1 tab PO DAILY 07/27/21 07/27/21 History Oil 1,000 mg Softgel] clonazePAM [KlonoPIN] 0.5 mg PO DAILY PRN 07/27/21 07/27/21 History Allergies Allergy/AdvReac Type Severity Reaction Status Date / Time hydromorphone HCl Allergy Severe Anaphylaxis Verified 07/27/21 10:06 [From Dilaudid] Surgical - Exam Vital Signs Temp Pulse Resp BP 97.9 F 85 16 120/81 07/27/21 10:10 07/27/21 10:10 07/27/21 10:10 07/27/21 10:10 BMI 37.6 - General no distress - Eyes normal ocular movement - ENT no hearing loss - Neck trachea midline - Respiratory normal respiratory effort, clear to auscultation - Cardiovascular Rhythm: regular Heart Sounds: normal: S1, S2 - Abdomen Abdomen: soft - Integumentary no rash, no abnormal pigmentation - Musculoskeletal normal gait - Psychiatric oriented to time, oriented to person, oriented to place, speech is normal, memory intact Breast Exam: BRA: 42D inspection: grade 3 ptosis bilateral palpation: right breast: Multi-positional exam fibrocystic changes no dominant masses or nodules of concern Right axilla: No adenopathy of concern Left breast: Multiple positional exam fibrocystic changes no dominant masses or nodules of concern Left axilla: No adenopathy of concern Results Mammogram results reviewed Note from Dr. Dykes --10-09 reviewed Assessment and Plan Assessment: Impression: 1. Intermittent left breast mastodynia resolved at this time 2. Fibrocystic breast changes 3. Positive family history of breast cancer 4. Cause of mastodynia may be related to questionable autoimmune disease Plan: 1. Continue close surveillance 2. Continue follow with rheumatology 4. Patient does not smoke, does not use caffeine, continue healthy lifestyle 5. Consider primrose oil 6. Patient has not been which would warrant interventional biopsy 7. Bilateral mammogram at 42 8. breast exam in one year CC: Dr. Dykes
== END | disposition home or self-care (01) ==
LOC: WWCWWP 09:49
PROVIDERS: ATTEND Surgery
DX: Z53.9 Procedure and treatment not carried out, unspecified reason (principal)

== ENCOUNTER → 2021-07-27 | Outpatient (CLI) | payer OTHER ==
[2021-07-27 15:48] LABS: Basophils # (A) 0.02 X 10*3/uL (0.00-0.10); Basophils % (A) 0.5 %; Eosinophils # (A) 0.02 X 10*3/uL (0.04-0.35); Eosinophils % (A) 0.5 %; HCT 44.8 % (37.2-46.3); HGB 13.8 g/dL (12.0-15.0); Lymphocytes # (A) 0.82 X 10*3/uL (0.90-5.00); Lymphocytes % (A) 20.7 %; MCH 27.3 pg (27.0-32.0); MCHC 30.8 g/dL (32.0-37.0); MCV 88.7 fL (80.0-97.0); Mean Platelet Volume 10.5 fL (9.5-12.2); Monocytes # (A) 0.18 X 10*3/uL (0.20-1.00); Monocytes % (A) 4.5 %; Neutrophils # (A) 2.91 X 10*3/uL (1.80-7.70); Neutrophils % (A) 73.5 %; Platelet Count 205 X 10*3/uL (140-440); RBC 5.05 X 10*6/uL (4.10-5.20); RDW 13.1 % (11.5-14.5); WBC 3.96 X 10*3/uL (4.50-10.00)
[2021-07-27 16:01] LABS: ALT 14 U/L (8-44); AST 11 U/L (13-35); African American GFR (CKD) 115.2 (60.0-200.0); Albumin 4.5 g/dL (3.8-4.9); Albumin/Globulin Ratio 2.09 (1.60-3.17); Alkaline Phosphatase 61 U/L (41-126); BUN/Creat Ratio 15.24 Ratio (12.00-20.00); Blood Urea Nitrogen 11.6 mg/dL (9.0-27.0); Calcium 9.4 mg/dL (8.7-10.3); Carbon Dioxide 23.3 mmol/L (20.0-27.5); Chloride 103 mmol/L (96-109); Globulin 2.2 g/dL (1.6-3.3); Glucose 105 mg/dL (70-110); Non-African American GFR(CKD) 99.4 (60.0-200.0); Potassium 4.2 mmol/L (3.5-5.5); Sodium 140 mmol/L (135-145); Total Protein 6.7 g/dL (6.2-8.2)
[2021-07-27 16:10] LABS: C Reactive Protein <0.30 mg/dL (0.00-0.80)
[2021-07-27 17:02] LABS: Erythrocyte Sedimentation Rate 3 mm/Hr (0-20)
[2021-07-27 19:56] LABS: Gliadin AB IgA, Deaminated NEGATIVE (NEGATIVE); Gliadin AB IgA, Unit <0.2 U/mL; Gliadin AB IgG, Deaminated NEGATIVE (NEGATIVE)
== END | disposition home or self-care (01) ==
LOC: LABWHC1 11:05
PROVIDERS: ATTEND Internal Medicine Gastroenterology
DX: K58.0 Irritable bowel syndrome with diarrhea (principal)
CPT/HCPCS: 36415; 80053; 83516; 85025; 85652; 86140

== ENCOUNTER → 2021-08-23 | Outpatient (CLI) | payer OTHER ==
--- NOTE | 2021-08-23 16:44 | US ---
EXAMINATION TYPE: US transvaginal DATE OF EXAM: 08/23/2021 COMPARISON: NONE CLINICAL HISTORY: 40-year-old female N92.0 MENORRHAGIA. TECHNIQUE: Transvaginal (TV). Date of LMP: 08-11-22 FINDINGS: EXAM MEASUREMENTS: Uterus: 8.2 x 4.0 x 4.4 cm Endometrial Stripe: 0.6 cm Right Ovary: Obscured by overlying bowel gas Left Ovary: Obscured by overlying bowel gas 1. Uterus: Anteverted and otherwise within normal limits. 2. Endometrium: wnl 3. Right Ovary: Obscured by overlying bowel gas 4. Left Ovary: Obscured by overlying bowel gas 5. Bilateral Adnexa: wnl 6. Posterior cul-de-sac: wnl IMPRESSION: Normal anteverted uterus. Endometrial stripe measuring 6 mm. Bowel gas obscures both ovaries.
== END | disposition home or self-care (01) ==
LOC: RADUSWWP 14:45
PROVIDERS: ATTEND Obstetrics & Gynecology
DX: N85.4 Malposition of uterus (principal); N92.0 Excessive and frequent menstruation with regular cycle
CPT/HCPCS: 76830

== ENCOUNTER → 2022-05-14 | Outpatient (CLI) | payer OTHER ==
--- NOTE | 2022-05-15 09:23 | MM ---
Reason for Exam: Screening (asymptomatic). Last mammogram was performed 2 year(s) and 1 month(s) ago. Patient History: Menarche at age 13. First Full-Term at age 28. Premenopausal. Hormonal Contraceptives for 1 year from age 23 until age 23. Maternal grandmother had breast cancer, age 62. Maternal cousin had breast cancer, age 32. Last menstrual period: 04/28/2022 Risk Values: Lindsey 5 year model risk: 0.6%. NCI Lifetime model risk: 12.2%. Prior Study Comparison: 03/04/2019 Bilateral Screening Mammogram, [facility]. 03/31/2020 Bilateral Screening Mammogram, [facility]. 05/11/2021 Left Diagnostic Mammogram, [facility]. Tissue Density: There are scattered fibroglandular densities. Findings: Analyzed By CAD. There is no suspicious group of microcalcifications or new suspicious mass in either breast. Overall Assessment: Negative, BI-RAD 1 Management: Screening Mammogram of both breasts in 1 year. A clinical breast exam by your physician is recommended on an annual basis and results should be correlated with mammographic findings. Electronically signed and approved by: Saeed Silva M.D. Radiologis
== END | disposition home or self-care (01) ==
LOC: RADMAMWWP 09:24
PROVIDERS: ATTEND Surgery
DX: Z12.31 Encounter for screening mammogram for malignant neoplasm of breast (principal); Z80.3 Family history of malignant neoplasm of breast
CPT/HCPCS: 77063; 77067

== ENCOUNTER → 2022-05-31 | Outpatient (CLI) | payer OTHER ==
[2022-05-31 09:51] VITALS: BP 136/85; PULSE 85; RESP 17; TEMP 97.8
--- NOTE | 2022-05-31 10:04 | P.PN ---
Subjective Progress Note Date: 05/31/22 Principal diagnosis: fibrocystic breast changes Ernestina is a 41-year-old white female seen initially in July of [address] Dozier regarding left breast pain. The pain seems to have resolved. She is not complaining of any lumps masses or nodules of concern in either breast. She had a bilateral mammogram performed on [id number] which was benign BIRADS 2. Lindsey Risk evaluation: 5 year risk: 0.6% lifetime risk: 12.2.% Caffeine: occasional nicotine: none chocolate: occasional BCP: used the patch for 1 year at 23 Family History: maternal cousin: breast cancer at 33; she is OK now; she is about 10 years out maternal grandmother: breast cancer maternal great aunt: breast cancer Hormonal history: Menarche: 13 stillbirth 1, M1; breast fed: yes; age at first livebirth: 28 periods heavy and regular Surgical history: Tubal ligation 4 C-sections Medical History: Sjogren's syndrome ? fibromyalgia Social History: nicotine: none alcohol: none drugs: none - Constitutional Constitutional: Denies chills, Denies fever - EENT Eyes: denies blurred vision, denies pain Ears: deny: decreased hearing, tinnitus Ears, nose, mouth and throat: Denies headache, Denies sore throat - Breasts Breasts: bilateral: as per HPI - Cardiovascular Cardiovascular: Denies chest pain, Denies shortness of breath - Respiratory Respiratory: Denies cough - Gastrointestinal Comment: IBS Gastrointestinal: Denies abdominal pain, Denies diarrhea, Denies nausea, Denies vomiting - Genitourinary (Female) Genitourinary: Denies dysuria, Denies hematuria - Menstruation Comment: cycle is regular Menstruation: Reports period heavy - Musculoskeletal Comment: ? Sjgren syndrome - Integumentary Comment: dry eyes and dry mouth - Neurological Neurological: Denies numbness, Denies weakness - Psychiatric Psychiatric: Reports anxiety - Endocrine Endocrine: Reports weight change, Denies fatigue - Hematologic/Lymphatic Comment: none - Allergic/Immunologic Allergic/Immunologic: Reports as per HPI Past Medical History Past Medical History: Fibromyalgia Additional Past Medical History / Comment(s): migraines, had hypertension with one , hx kidney stones, sjogrens syndrome. Patient has a history of interstitial cystitis past obstetrical history is significant for a demise at about 33 weeks with her first and then a term for her second . History of Any Multi-Drug Resistant Organisms: None Reported Past Surgical History: Section Additional Past Surgical History / Comment(s): Patient has had a D&C. Past Anesthesia/Blood Transfusion Reactions: Motion Sickness, Postoperative Nausea & Vomiting (PONV) Past Psychological History: No Psychological Hx Reported Smoking Status: Never smoker Past Alcohol Use History: None Reported Past Drug Use History: None Reported - Past Family History Father Family Medical History: Cancer Mother Family Medical History: Blood Disorder Additional Family Medical History / Comment(s): MTHR Objective - Vital Signs Vital signs: Vital Signs Temp 97.8 F 05/31/22 09:48 Pulse 85 05/31/22 09:48 Resp 17 05/31/22 09:48 BP 136/85 05/31/22 09:48 Pulse Ox 99 05/31/22 09:48 FiO2 Intake & Output 05/30/22 05/31/22 05/31/22 18:59 06:59 18:59 Weight 106.594 kg - Exam BMI: 39.1 - Constitutional General appearance: Present: cooperative - EENT Eyes: Present: EOMI ENT: Present: hearing grossly normal - Neck Neck: Present: normal ROM - Respiratory Respiratory: bilateral: CTA - Cardiovascular Rhythm: regular Heart sounds: normal: S1, S2 - Gastrointestinal General gastrointestinal: Present: soft - Integumentary Integumentary: Present: normal turgor - Musculoskeletal Musculoskeletal: Present: gait normal - Psychiatric Psychiatric: Present: A&O x's 3, appropriate affect, intact judgment & insight - Additional findings Additional findings: Breast Exam: BRA: 44D Inspection: A lateral grade 3 ptosis Palpation: Right breast: Multiple positional exam fibrocystic changes no dominant masses or nodules of concern Right axilla: No adenopathy of concern Left breast: Positional exam fibrocystic changes no dominant masses or nodules of concern Left axilla: No adenopathy of concern Assessment and Plan Assessment: Impression: Bilateral fibrocystic breast changes Plan: Bilateral mammogram in 1 year with physician exam at that time Cc: Dr. Dozier, Dr. Valentino
== END ==
LOC: WWCWWP 09:18
PROVIDERS: ATTEND Surgery
DX: N60.11 Diffuse cystic mastopathy of right breast (principal); N60.12 Diffuse cystic mastopathy of left breast; F41.9 Anxiety disorder, unspecified; I10 Essential (primary) hypertension

== ENCOUNTER → 2023-03-07 | Outpatient (CLI) | payer OTHER ==
--- NOTE | 2023-03-07 17:36 | MR ---
EXAMINATION TYPE: MR hip RT wo con DATE OF EXAM: 03/07/2023 COMPARISON: NONE HISTORY: 42-year-old female M7 0.61, TROCHANTERIC BURSITIS, RIGHT HIP, PAIN, LIMITED MOVEMENT TECHNIQUE: Multiplanar, multisequence images of the right hip were obtained without IV contrast. FINDINGS: No evidence for hip fracture or AVN. No significant hip joint effusion. Some irregular signal along the anterior superior quadrant of the right hip on both coned in sagittal and coronal. Possible small labral tear here. No suspicious bone marrow replacement. Some scattered red marrow is compatible patient's younger age. Sacrum and SI joints appear intact. Mild degenerative change at the pubic symphysis with joint space narrowing and spurring. The rectus femoris and hamstrings origins as well as the iliopsoas insertions are intact. There are mild effusions in the subgluteus minimus bursae, left greater than right , and trace trocha nteric bursal effusions, again, left greater than right. Symmetric course, caliber, and signal intensity of the sciatic nerves. Uterus is anteverted. Follicular changes in both ovaries. No abnormal fluid collection pelvis or pelv ic lymphadenopathy. IMPRESSION: 1. Mild effusions in the bilateral subgluteus minimus bursae as well as the trochanteric bursae, thou gh, left greater than right. 2. There may be a small tear of the acetabular labrum along the anterior superior quadrant.
== END | disposition home or self-care (01) ==
LOC: RADMRIMAIN 06:23
PROVIDERS: ATTEND Orthopaedic Surgery
DX: M70.61 Trochanteric bursitis, right hip (principal); M25.451 Effusion, right hip; M35.00 Sjogren syndrome, unspecified

== ENCOUNTER 2023-03-22 12:32 | Day surgery (SDC) | payer OTHER ==
[~2023-03-22 12:32] MED LIST: LACTATED RINGERS 1,000 ML IV SCH; LIDOCAINE 1% (10MG/ML) FOR IV START INTRADERMA PRN; ONDANSETRON 4 MG/2 ML VIAL IVP PRN
[2023-03-22 12:57] VITALS: TEMP 98.3
[2023-03-22] MEDS ORDERED: LIDOCAINE 2% INJ 20 MG/ML (2 ML VIAL) ONE (13:22)
[2023-03-22] MEDS ORDERED: PROPOFOL 10 MG/ML 20 ML VIAL IV ONE (13:22)
--- NOTE | 2023-03-22 13:38 | P.PCN ---
Date of Procedure: 03/22/23 Procedure(s) Performed: BRIEF HISTORY: Patient is a 42-year-old pleasant white female scheduled for an elective colonoscopy as a part of evaluation of intermittent rectal bleeding for the last few months duration. PROCEDURE PERFORMED: Colonoscopy. PREOPERATIVE DIAGNOSIS: Admitted rectal. IV sedation per Anesthesia. PROCEDURE: After informed consent was obtained, the patient, was brought into the endoscopy unit. IV sedation was administered by Anesthesia under continuous monitoring. Digital rectal examination was normal. Initially the Olympus CF-160 flexible video colonoscope was then inserted in the rectum, gradually advanced into the cecum without any difficulty. Careful examination was performed as the scope was gradually being withdrawn. Ileocecal valve and the appendiceal orifice were visualized and appeared normal. Prep was excellent. Mucosa of the cecum, ascending colon, transverse colon, descending colon, sigmoid colon, and rectum appeared normal. Retroflexion was performed in the rectum and small internal hemorrhoids were seen. The patient tolerated the procedure well. IMPRESSION: Normal-appearing colon from rectum to cecum with no evidence of colorectal neoplasia. Small internal hemorrhoids. RECOMMENDATIONS: Findings of this examination were discussed with the patient as well as a family. She was advised to be a high-fiber diet and take fiber supplements a regular basis. Recommend repeat screening colonoscopy in 10 years..
[2023-03-22 13:45] VITALS: RESP 16
[2023-03-22 14:22] VITALS: BP 114/74; PULSE 78
== END 2023-03-22 14:10 ==
LOC: ORWHC2ENDO 12:32
PROVIDERS: ATTEND Internal Medicine Gastroenterology
DX: K62.5 Hemorrhage of anus and rectum (principal); K64.8 Other hemorrhoids; I10 Essential (primary) hypertension; Z98.891 History of uterine scar from previous surgery; Z79.899 Other long term (current) drug therapy
CPT/HCPCS: 81025; 45378; J2704; J2001

== ENCOUNTER → 2023-05-06 | Outpatient (CLI) | payer OTHER ==
--- NOTE | 2023-05-08 10:56 | MR ---
EXAMINATION TYPE: MR lumbar spine wo con DATE OF EXAM: 05/06/2023 6:31 AM CLINICAL INDICATION:Female, 42 years old with history of M54.16;, Low back pain into rt buttocks and rt lower leg COMPARISON: None TECHNIQUE: Multi planar, multi sequence imaging was performed utilizing: T1-weighted, T2-weighted, a nd turbo inversion recovery imaging of the lumbar spine. IV Contrast: None. FINDINGS: Alignment: The lumbar vertebral bodies have preserved heights and alignment. Cord: The conus medullaris and the distal spinal cord appear unremarkable with regards to their signa l intensity and morphology. Bones/Discs: Mild degeneration changes with osteophyte formation and at least one Schmorl's node. No abnormal inversion recovery signal to suggest bony edema. Intervertebral disc signal is maintained. D isc space narrowing most pronounced at L5-S1. T12-L1: No evidence of significant spinal canal stenosis or neural foraminal stenosis. L1-L2: No evidence of significant spinal canal stenosis or neural foraminal stenosis. L2-L3: No evidence of significant spinal canal stenosis or neural foraminal stenosis. L3-L4: No evidence of significant spinal canal stenosis or neural foraminal stenosis. L4-L5: No evidence of significant spinal canal stenosis. Facet joint arthropathy mild bilateral neura l foraminal stenosis. Right synovial cyst which abuts the right forming nerves. Series 601 image 8. L5-S1: The disc is rounded posterior morphology without significant spinal canal stenosis. Facet join t arthropathy with mild neural foraminal stenosis. No significant spinal canal or neural foraminal stenosis in the remainder of the visualized levels. Other findings: None. IMPRESSION: 1. No definitive evidence of disc herniation or significant spinal canal or neural foraminal stenosi s. 2. Mild disc degeneration degeneration with associated osteoarthritic changes. There is a synovial c yst at L4-L5 which abuts the forming nerves.
== END | disposition home or self-care (01) ==
LOC: RADMRIMAIN 05:52
PROVIDERS: ATTEND Orthopaedic Surgery Orthopaedic Surgery of the Spine
DX: M43.16 Spondylolisthesis, lumbar region (principal); M51.17 Intervertebral disc disorders with radiculopathy, lumbosacral region; E66.9 Obesity, unspecified; M35.00 Sjogren syndrome, unspecified; M47.27 Other spondylosis with radiculopathy, lumbosacral region; M71.38 Other bursal cyst, other site
CPT/HCPCS: 72148

== ENCOUNTER → 2023-08-27 | Outpatient (CLI) | payer OTHER ==
--- NOTE | 2023-08-27 18:07 | MM ---
Reason for Exam: Screening (asymptomatic). Last mammogram was performed 1 year(s) and 4 month(s) ago. Patient History: Menarche at age 13. First Full-Term at age 28. Premenopausal. Hormonal Contraceptives for 1 year from age 23 until age 23. Maternal grandmother had breast cancer, age 62. Maternal cousin had breast cancer, age 32. Risk Values: Lindsey 5 year model risk: 0.7%. NCI Lifetime model risk: 12.1%. Prior Study Comparison: 03/31/2020 Bilateral Screening Mammogram, [facility]. 05/11/2021 Left Diagnostic Mammogram, [facility]. 05/14/2022 Bilateral MG 3D screening mammo w/cad, [facility]. Tissue Density: There are scattered fibroglandular densities. Findings: Analyzed By CAD. Chronic bilateral nodularity. There is no suspicious group of microcalcifications or new suspicious mass in either breast. Overall Assessment: Benign, BI-RAD 2 Management: Screening Mammogram of both breasts in 1 year. . Patient should continue monthly self-breast exams. A clinical breast exam by your physician is recommended on an annual basis. This exam should not preclude additional follow-up of suspicious palpable abnormalities. Note on Lindsey scores and lifetime risk: 1. A Lindsey score greater than 3% is considered moderate risk. If this is the case, consider specialist referral to assess eligibility for a risk reducing agent. 2. If overall lifetime risk for the development of breast cancer is 20% or higher, the patient may qualify for future screening with alternating mammogram and breast MRI. Electronically signed and approved by: Corky Owusu M.D. Radiologist
== END | disposition home or self-care (01) ==
LOC: RADMAMWWP 07:18
PROVIDERS: ATTEND Surgery
DX: Z12.31 Encounter for screening mammogram for malignant neoplasm of breast (principal); Z80.3 Family history of malignant neoplasm of breast
CPT/HCPCS: 77063; 77067

== ENCOUNTER → 2023-09-12 | Outpatient (CLI) | payer OTHER ==
--- NOTE | 2023-09-12 10:06 | P.PN ---
Subjective Progress Note Date: 09/12/23 Principal diagnosis: fibrocystic breast changes fibrocystic breast changes Ernestina is a 42-year-old white female seen initially in July of [address] Dozier regarding left breast pain. The pain seems to have resolved. She is not complaining of any lumps masses or nodules of concern in either breast. She had a bilateral mammogram performed on 08-27-23 which was benign BIRADS 2. This was personally reviewed. She recently passed a kidney stone yesterday. Her menstrual periods are approximately every 60 days. They have become more irregular recently. She recently which was normal. Told she may have polycystic ovarian disease or may be premenopausal. Lindsey Risk evaluation: 5 year risk: 0.7% lifetime risk: 12.1.% Caffeine: occasional nicotine: none chocolate: occasional BCP: used the patch for 1 year at 23 Family History: maternal cousin: breast cancer at 33; she is OK now; she is about 10 years out maternal grandmother: breast cancer maternal great aunt: breast cancer Hormonal history: Menarche: 13 stillbirth 1, M1; breast fed: yes; age at first livebirth: 28 periods heavy and irregular Surgical history: Tubal ligation 4 C-sections Medical History: Sjogren's syndrome ? fibromyalgia Stone Irregular menstrual periods Polycystic ovarian disease/premenopausal Social History: nicotine: none alcohol: none drugs: none - Constitutional Constitutional: Denies chills, Denies fever - EENT Eyes: denies blurred vision, denies pain Ears: deny: decreased hearing, tinnitus Ears, nose, mouth and throat: Denies headache, Denies sore throat - Breasts Breasts: bilateral: as per HPI - Cardiovascular Cardiovascular: Denies chest pain, Denies shortness of breath - Respiratory Respiratory: Denies cough - Gastrointestinal Comment: IBS Gastrointestinal: Denies abdominal pain, Denies diarrhea, Denies nausea, Denies vomiting - Genitourinary (Female) Genitourinary: Denies dysuria, Denies hematuria - Menstruation Comment: cycle is regular Menstruation: Reports period heavy - Musculoskeletal Comment: ? Sjgren syndrome - Integumentary Comment: dry eyes and dry mouth - Neurological Neurological: Denies numbness, Denies weakness - Psychiatric Psychiatric: Reports anxiety - Endocrine Endocrine: Reports weight change, Denies fatigue - Hematologic/Lymphatic Comment: none - Allergic/Immunologic Allergic/Immunologic: Reports as per HPI Past Medical History Past Medical History: Fibromyalgia Additional Past Medical History / Comment(s): migraines, had hypertension with one , hx kidney stones, sjogrens syndrome. Patient has a history of interstitial cystitis past obstetrical history is significant for a demise at about 33 weeks with her first and then a term for her second . History of Any Multi-Drug Resistant Organisms: None Reported Past Surgical History: Section Additional Past Surgical History / Comment(s): Patient has had a D&C. Past Anesthesia/Blood Transfusion Reactions: Motion Sickness, Postoperative Nausea & Vomiting (PONV) Past Psychological History: No Psychological Hx Reported Smoking Status: Never smoker Past Alcohol Use History: None Reported Past Drug Use History: None Reported - Past Family History Father Family Medical History: Cancer Mother Family Medical History: Blood Disorder Additional Family Medical History / Comment(s): MTHR Objective - Constitutional General appearance: Present: cooperative - EENT Eyes: Present: EOMI ENT: Present: hearing grossly normal - Neck Neck: Present: normal ROM - Respiratory Respiratory: bilateral: CTA - Cardiovascular Heart sounds: normal: S1, S2 - Integumentary Integumentary: Present: normal turgor - Musculoskeletal Musculoskeletal: Present: gait normal - Psychiatric Psychiatric: Present: A&O x's 3, appropriate affect, intact judgment & insight - Additional findings Additional findings: Breast Exam: BRA: 44D Inspection: bilateral grade 3 ptosis Palpation: Right breast: Multiple positional exam fibrocystic changes no dominant masses or nodules of concern Right axilla: No adenopathy of concern Left breast: Positional exam fibrocystic changes no dominant masses or nodules of concern Left axilla: No adenopathy of concern Assessment and Plan Assessment: Impression: Bilateral fibrocystic breast changes Plan: Bilateral mammogram in 1 year with physician exam at that time Cc: Dr. Valentino
[2023-09-12 10:28] VITALS: BP 135/83; PULSE 87; RESP 17; TEMP 97.9
== END ==
LOC: WWCWWP 09:49
PROVIDERS: ATTEND Surgery
DX: N60.11 Diffuse cystic mastopathy of right breast (principal); N60.12 Diffuse cystic mastopathy of left breast; E28.2 Polycystic ovarian syndrome; M35.00 Sjogren syndrome, unspecified; N64.4 Mastodynia; Z80.3 Family history of malignant neoplasm of breast; Z87.442 Personal history of urinary calculi; Z87.59 Personal history of other complications of pregnancy, childbirth and the puerperium; Z88.5 Allergy status to narcotic agent